=== PATIENT | male | born 1955 | race Caucasian/White ===

== ENCOUNTER 2017-04-15 14:59 | Emergency (ER) | payer OTHER ==
[~2017-04-15] VITALS: Ht 177.8 cm; Wt 86.2 kg
[2017-04-15] MEDS ORDERED: ALBU8HFA4 INH (15:19)
[2017-04-15] MEDS ORDERED: ACET-2605 PO (15:19)
[2017-04-15] MEDS ORDERED: ASPI81TA93 PO (15:19)
[2017-04-15] MEDS ORDERED: FLUT1DIS28 IH (15:19)
[2017-04-15] MEDS ORDERED: ATOR20TA PO (15:19)
[2017-04-15] MEDS ORDERED: DONE10TA11 PO (15:19)
[2017-04-15] MEDS ORDERED: METO25TA6 PO (15:19)
[2017-04-15] MEDS ORDERED: MEMA14CA PO (15:19)
[2017-04-15] MEDS ORDERED: CLOP75TA33 PO (15:19)
[2017-04-15] MEDS ORDERED: [UNRECOGNIZED DRUG - CODE] PO (15:19)
[2017-04-15] MEDS ORDERED: LISI-603 PO (15:19)
[2017-04-15] MEDS: IV NORMAL SALINE 1000 ML BAG IV ONE ×2 (15:25→16:11)
[2017-04-15] MEDS ORDERED: NORMAL SALINE FLUSH 10 ML DISP.SYRIN ONE (15:38)
[2017-04-15] MEDS ORDERED: IOHEXOL 300MG/ML 100 ML INFUS..BTL ONE (15:39)
[2017-04-15 15:46] LABS: BASOPHILS % (AUTO) 0.6 % (0.0-2.0); EOSINOPHILS % (AUTO) 0.5 % (0.0-7.0); HEMOGLOBIN 13.2 g/dL (12.5-16.3); LYMPHOCYTES # (AUTO) 1.2 K/uL (20.0-40.0); LYMPHOCYTES % (AUTO) 19.8 % (20.5-51.5); MEAN CORPUSCULAR HGB CONC 33 g/dL (32.5-36.3); MEAN CORPUSCULAR VOLUME 96.9 fL (73.0-96.2); MONOCYTES # (AUTO) 0.5 K/uL (2.0-10.0); MONOCYTES % (AUTO) 7.9 % (0.0-11.0); NEUTROPHILS # (AUTO) 4.3 K/uL (1.8-8.9); NEUTROPHILS % (AUTO) 71.2 % (38.5-71.5); PLATELET COUNT (AUTO) 197 K/uL (152-348); RED BLOOD CELL COUNT(AUTO) 4.12 MIL/uL (4.06-5.63)
[2017-04-15 15:54] LABS: CREATININE 1.2 mg/dL (0.6-1.3); POTASSIUM 3.8 mmol/L (3.5-5.1)
[2017-04-15 16:00] LABS: BILIRUBIN,DIRECT 0.1 mg/dL (0.0-0.2); BILIRUBIN,TOTAL 0.5 mg/dL (0.2-1.0); TOTAL PROTEIN, SERUM 7.3 g/dL (6.4-8.2)
[2017-04-15 16:06] LABS: *BILIRUBIN,URIN NEGATIVE (NEGATIVE); *BLOOD, URINE Trace-intact (NEGATIVE); *CLARITY,URINE SLIGHTLY CLOUDY (CLEAR); *COLOR,URINE YELLOW (YELLOW); *KETONES,URINE NEGATIVE (NEGATIVE); *PROTEIN,URINE 1+ (NEGATIVE); *UROBILINOGEN,URINE 0.2 E.U./dl (NORMAL); LEUKOCYTE ESTERASE ,URINE NEGATIVE (NEGATIVE); NITRITE, URINE NEGATIVE (NEGATIVE); PH,URINE 5.5 (5.0-8.0); UGLUCOSE NEGATIVE (NEGATIVE)
[2017-04-15 16:17] LABS: BACTERIA,URINE NONE SEEN /HPF (NONE SEEN); SQUAMOUS EPITHELIAL CELL,UR NONE SEEN /HPF (NONE SEEN); WBC,URINE 0-3 /HPF (0-3)
--- NOTE | 2017-04-15 18:30 | NUR ---
Pt is resting in [facility] with no s/s of distress noted, per pt to d/c back to [facility] living [facility], [facility] called for transport, eta [id number].
--- NOTE | 2017-04-15 20:50 | NUR ---
Call placed to [facility] who state that there is a 45 minute delay to their original ETA. Expected ETA is [id number].
[2017-04-15] MEDS: LORAZEPAM 0.5 MG TABLET PO ONE (21:12)
[2017-04-15] MEDS ORDERED: LORAZEPAM 0.5 MG TABLET ONE (21:21)
--- NOTE | 2017-04-15 21:35 | NUR ---
Patient discharged to home in stable conditon. Written and verbal after care instructions given. Patient verbalizes understanding of instructions.
== END 2017-04-15 21:37 | disposition home or self-care (01) ==
LOC: ER 15:01
DX: A08.4 Viral intestinal infection, unspecified (principal); G30.0 Alzheimer's disease with early onset; F02.80 Dementia in other diseases classified elsewhere, unspecified severity, without behavioral disturbance, psychotic disturbance, mood disturbance, and anxiety; I10 Essential (primary) hypertension; E78.5 Hyperlipidemia, unspecified; J44.9 Chronic obstructive pulmonary disease, unspecified; Z79.82 Long term (current) use of aspirin
CPT/HCPCS: 36415; 70030-TC; 70450; 71045; 83605; 83690; 85025; 85730; 93005; A4663; C1758; J3490; J7030; Q9967

== ENCOUNTER 2017-06-07 15:26 | Inpatient (IN) | payer OTHER ==
[~2017-06-07] VITALS: Ht 180.3 cm; Wt 77.6 kg
[~2017-06-07 15:26] MED LIST: ACET-2605 PO; ALBU8HFA4 INH; ASPI81TA93 PO; ATOR20TA PO; CLOP75TA33 PO; DONE10TA11 PO; FLUT1DIS28 IH; LISI-603 PO; MEMA14CA PO; METO25TA6 PO; [UNRECOGNIZED DRUG - CODE] PO
[2017-06-07] MEDS ORDERED: LOPE-156 PO (15:43)
[2017-06-07 17:07] LABS: BASOPHILS # (AUTO) 0.1 K/uL (0.0-8.0); EOSINOPHILS # (AUTO) 0.1 K/uL (0.0-0.7); EOSINOPHILS % (AUTO) 1.7 % (0.0-7.0); HEMATOCRIT 42.1 % (36.7-47.1); HEMOGLOBIN 14.4 g/dL (12.5-16.3); LYMPHOCYTES # (AUTO) 2.2 K/uL (20.0-40.0); LYMPHOCYTES % (AUTO) 24.9 % (20.5-51.5); MEAN CORPUSCULAR HGB CONC 34 g/dL (32.5-36.3); MEAN CORPUSCULAR VOLUME 93.9 fL (73.0-96.2); MONOCYTES # (AUTO) 0.6 K/uL (2.0-10.0); MONOCYTES % (AUTO) 7.5 % (0.0-11.0); NEUTROPHILS # (AUTO) 5.6 K/uL (1.8-8.9); NEUTROPHILS % (AUTO) 64.9 % (38.5-71.5); PLATELET COUNT (AUTO) 208 K/uL (152-348); RED BLOOD CELL COUNT(AUTO) 4.49 MIL/uL (4.06-5.63); WHITE BLOOD COUNT (AUTO) 8.6 K/uL (3.6-10.2)
[2017-06-07 17:16] LABS: CREATININE 1.2 mg/dL (0.6-1.3); POTASSIUM 3.3 mmol/L (3.5-5.1)
[2017-06-07 17:23] LABS: BILIRUBIN,TOTAL 0.6 mg/dL (0.2-1.0); TOTAL PROTEIN, SERUM 8.3 g/dL (6.4-8.2)
[2017-06-07] MEDS ORDERED: IV NORMAL SALINE 1000 ML BAG IV ONE (19:15)
[2017-06-07] MEDS ORDERED: VANCOMYCIN IV 1,000 MG in IV DEXTROSE 5% 250 ML IV ONE (19:15)
[2017-06-07 19:40] LABS: THYROID STIMULATING HORMONE 2.459 mIU/mL (0.358-3.740)
[2017-06-07] MEDS ORDERED: VANCOMYCIN 1000 MG VIAL ONE (21:02)
[2017-06-07 21:56] LABS: *BILIRUBIN,URIN NEGATIVE (NEGATIVE); *BLOOD, URINE 1+ (NEGATIVE); *CLARITY,URINE CLEAR (CLEAR); *COLOR,URINE YELLOW (YELLOW); *KETONES,URINE TRACE (NEGATIVE); *PROTEIN,URINE 1+ (NEGATIVE); LEUKOCYTE ESTERASE ,URINE NEGATIVE (NEGATIVE); NITRITE, URINE NEGATIVE (NEGATIVE); UGLUCOSE NEGATIVE (NEGATIVE)
[2017-06-07 22:08] LABS: MUCUS,URINE MANY /LPF (0-FEW); SQUAMOUS EPITHELIAL CELL,UR FEW /HPF (NONE SEEN); WBC,URINE 0-3 /HPF (0-3)
[2017-06-07 23:21] VITALS: BP 164/98
[2017-06-08] VITALS: BP 143/93
[2017-06-08 04:42] VITALS: BP 109/80
[2017-06-08 06:23] LABS: BASOPHILS # (AUTO) 0.1 K/uL (0.0-8.0); BASOPHILS % (AUTO) 0.8 % (0.0-2.0); EOSINOPHILS # (AUTO) 0.3 K/uL (0.0-0.7); EOSINOPHILS % (AUTO) 3.2 % (0.0-7.0); HEMATOCRIT 38.1 % (36.7-47.1); HEMOGLOBIN 13.1 g/dL (12.5-16.3); LYMPHOCYTES # (AUTO) 2.4 K/uL (20.0-40.0); LYMPHOCYTES % (AUTO) 29.8 % (20.5-51.5); MEAN CORPUSCULAR HEMOGLOBIN 32.3 uug (23.8-33.4); MEAN CORPUSCULAR HGB CONC 34 g/dL (32.5-36.3); MEAN CORPUSCULAR VOLUME 94.2 fL (73.0-96.2); MONOCYTES # (AUTO) 0.7 K/uL (2.0-10.0); NEUTROPHILS # (AUTO) 4.5 K/uL (1.8-8.9); NEUTROPHILS % (AUTO) 57.2 % (38.5-71.5); PLATELET COUNT (AUTO) 176 K/uL (152-348); RED BLOOD CELL COUNT(AUTO) 4.05 MIL/uL (4.06-5.63); WHITE BLOOD COUNT (AUTO) 7.9 K/uL (3.6-10.2)
[2017-06-08 06:31] LABS: BILIRUBIN,TOTAL 0.7 mg/dL (0.2-1.0); CREATININE 1.1 mg/dL (0.6-1.3); MAGNESIUM 1.9 mg/dL (1.8-2.4); PHOSPHOROUS 3.8 mg/dL (2.5-4.9); POTASSIUM 3.5 mmol/L (3.5-5.1); TOTAL PROTEIN, SERUM 6.7 g/dL (6.4-8.2)
[2017-06-08] MEDS ORDERED: ALBUTEROL SULFATE 8 GM HFA.AER.AD INH PRN (07:30)
[2017-06-08] MEDS ORDERED: LOPERAMIDE HCL 2 MG CAPSULE PO PRN (07:30)
[2017-06-08] MEDS ORDERED: ASPIRIN EC 325 MG TABLET.DR PO SCH (07:30)
[2017-06-08] MEDS ORDERED: ACETAMINOPHEN ES 500 MG TABLET PO PRN (07:30)
[2017-06-08] MEDS ORDERED: HOME MED MISCELLANEOUS XX SCH (07:30)
[2017-06-08] MEDS ORDERED: ALBUTEROL SULFATE 2.5 MG/3 ML NEBU NEB PRN (07:45)
[2017-06-08] MEDS ORDERED: FLUTICASONE/SALMETEROL 250/50 INHALER IH SCH (09:00)
[2017-06-08] MEDS: LISINOPRIL 20 MG TABLET PO SCH ×2 (09:00→09:05)
[2017-06-08] MEDS ORDERED: ASPIRIN 81 MG TAB.CHEW PO SCH (09:00)
[2017-06-08] MEDS: METOPROLOL TARTRATE 25 MG TABLET PO SCH ×3 (09:00→17:57)
[2017-06-08] MEDS: DONEPEZIL 10 MG TABLET PO SCH (09:05)
[2017-06-08] MEDS: CLOPIDOGREL 75 MG TABLET PO SCH (09:05)
[2017-06-08] MEDS: FLUTICASONE/VILANTEROL 1 EACH BLST.W.DEV INH SCH (09:06)
[2017-06-08] MEDS: VANCOMYCIN IV 1 G in PREMIXED 0 EACH IV SCH ×2 (09:07→20:51)
[2017-06-08 10:29] VITALS: BP 129/94
[2017-06-08] MEDS: ASPIRIN EC 325 MG TABLET.DR PO SCH (11:51)
[2017-06-08] MEDS: MEMANTINE HCL 5 MG TABLET PO SCH ×2 (11:51→20:51)
[2017-06-08 16:03] VITALS: BP 154/88
[2017-06-08 20:15] VITALS: BP 137/71
[2017-06-08] MEDS: ATORVASTATIN 20 MG TABLET PO SCH (20:51)
[2017-06-09 00:06] VITALS: BP 135/69
[2017-06-09 04:04] VITALS: BP 119/67
[2017-06-09] MEDS: MEMANTINE HCL 5 MG TABLET PO SCH ×2 (08:41→20:35)
[2017-06-09] MEDS: DONEPEZIL 10 MG TABLET PO SCH (08:41)
[2017-06-09] MEDS: FLUTICASONE/VILANTEROL 1 EACH BLST.W.DEV INH SCH (08:41)
[2017-06-09] MEDS: CLOPIDOGREL 75 MG TABLET PO SCH (08:42)
[2017-06-09] MEDS: ASPIRIN EC 325 MG TABLET.DR PO SCH (08:42)
[2017-06-09] MEDS: METOPROLOL TARTRATE 25 MG TABLET PO SCH ×2 (08:45→17:42)
[2017-06-09] MEDS: LISINOPRIL 20 MG TABLET PO SCH (08:45)
[2017-06-09] MEDS: VANCOMYCIN IV 1,250 MG in IV DEXTROSE 5% 500 ML IV SCH ×2 (10:44→22:16)
[2017-06-09 11:30] VITALS: BP 125/64
[2017-06-09 15:11] VITALS: BP 123/65
[2017-06-09 19:30] VITALS: BP 111/68
[2017-06-09] MEDS: ATORVASTATIN 20 MG TABLET PO SCH (20:35)
[2017-06-10 05:38] VITALS: BP 111/59
[2017-06-10 07:30] VITALS: BP 120/72
[2017-06-10] MEDS: DONEPEZIL 10 MG TABLET PO SCH (08:36)
[2017-06-10] MEDS: MEMANTINE HCL 5 MG TABLET PO SCH (08:36)
[2017-06-10] MEDS: ASPIRIN EC 325 MG TABLET.DR PO SCH (08:36)
[2017-06-10] MEDS: METOPROLOL TARTRATE 25 MG TABLET PO SCH ×2 (08:37→17:00)
[2017-06-10] MEDS: FLUTICASONE/VILANTEROL 1 EACH BLST.W.DEV INH SCH (08:37)
[2017-06-10] MEDS: LISINOPRIL 20 MG TABLET PO SCH (08:37)
[2017-06-10] MEDS: CLOPIDOGREL 75 MG TABLET PO SCH (08:37)
[2017-06-10 12:00] VITALS: BP 102/67
[2017-06-10] MEDS: VANCOMYCIN IV 1,250 MG in IV DEXTROSE 5% 500 ML IV SCH (12:26)
[2017-06-10] MEDS ORDERED: SULF1TAB48 PO (14:19)
[2017-06-10 16:00] VITALS: BP 112/65
[2017-06-10 16:59] VITALS: BP 115/68
[2017-06-10 17:00] VITALS: BP 115/68
== END 2017-06-10 17:10 | DRG 383 ==
LOC: ER 15:26 → TELE 22:34
PROVIDERS: ADMIT Internal Medicine; ATTEND Internal Medicine
PROC: 05H633Z Insertion of Infusion Device into Left Subclavian Vein, Percutaneous Approach (ICD-10-PCS; principal; 2017-06-09)
DX: L03.011 Cellulitis of right finger (principal); G30.9 Alzheimer's disease, unspecified; F01.50 Vascular dementia, unspecified severity, without behavioral disturbance, psychotic disturbance, mood disturbance, and anxiety; I10 Essential (primary) hypertension; F02.80 Dementia in other diseases classified elsewhere, unspecified severity, without behavioral disturbance, psychotic disturbance, mood disturbance, and anxiety; I25.10 Atherosclerotic heart disease of native coronary artery without angina pectoris; Z79.899 Other long term (current) drug therapy; Z79.82 Long term (current) use of aspirin; E87.6 Hypokalemia; E78.5 Hyperlipidemia, unspecified; J44.9 Chronic obstructive pulmonary disease, unspecified
CPT/HCPCS: 36415; 70030-TC; 71045; 73140; 83735; 84100; 84443; 85025; 85610; 92523; 93005; A4663; C1758; J3370; J7030; J7040; J7060